=== PATIENT | female | born 1990 | race Caucasian/White ===

== ENCOUNTER → 2017-01-21 | Outpatient (CLI) | payer BC ==
[~2017-01-21] MED LIST: BCPILLS PO; DULO60CA44 PO; TIZA2CAP PO; TOPI1CAP3 PO
== END | disposition home or self-care (01) ==
LOC: C.PAPS 08:38
PROVIDERS: ATTEND Obstetrics & Gynecology
DX: Z01.411 Encounter for gynecological examination (general) (routine) with abnormal findings (principal); R87.616 Satisfactory cervical smear but lacking transformation zone; Z87.42 Personal history of other diseases of the female genital tract

== ENCOUNTER → 2017-02-07 | Outpatient (CLI) | payer BC ==
[~2017-02-07] MED LIST changes: +GADAVIST IV PRN
--- NOTE | 2017-02-07 13:35 | DIAGNOSTIC IMAGING REPORT ---
MRI OF THE BRAIN WITHOUT AND WITH IV CONTRAST CLINICAL HISTORY: Headache. Chiari malformation. LEFT-SIDED NUMBNESS COMPARISON STUDY: No previous studies for comparison. TECHNIQUE: MRI of the brain was performed from the vertex to the skull base utilizing various T1 and T2 weighted sequences. Following the IV administration of 8.7 mL of Gadavist contrast, additional enhanced images were obtained. FINDINGS: Sagittal T1, axial diffusion, proton density and T2 weighted axial, coronal FLAIR, and pre and post axial T1-weighted images were acquired. These were supplemented with post gadolinium coronal T1 weighted images. The patient is status post a suboccipital craniotomy. No intra or extra-axial mass lesions are visualized. Axial diffusion-weighted images reveal no evidence of acute or subacute infarction. There is no evidence of ventricular dilatation. Proton density T2-weighted and FLAIR images reveal linear foci of increased T2 signal within the right frontal lobe extending from the cortex to the right lateral ventricle. This may represent a prior shunt catheter tract There are no abnormal flow voids. There is no evidence of pathologic enhancement. IMPRESSION: 1. Postsurgical changes of a suboccipital craniotomy 2. Linear signal abnormalities within the right frontal lobe, possibly related to a prior shunt catheter tract 3. No acute intracranial findings. No evidence of intracranial mass. No evidence of acute or subacute infarction. No evidence of hydrocephalus. Electronically signed by: Isaac Blake M.D. 02/07/2017 1:34 PM Dictated Date/Time: 02/07/2017 1:31 PM
--- NOTE | 2017-02-07 13:54 | DIAGNOSTIC IMAGING REPORT ---
MRI CERVICAL SPINE COMBO CLINICAL HISTORY: CHIARI MALFORMATION HEADACHE TECHNIQUE: Sagittal and axial T1, T2 and STIR images were obtained. Imaging was performed before and after administration of 8.7 cc of intravenous Gadavist. COMPARISON STUDY: No previous studies for comparison. There are no suspicious areas of marrow replacement. There is minimal dilatation of the central canal as visualized in the sagittal images extending from the mid C4 level to the inferior T4 level. C2-3: There is no evidence of disc bulge or focal herniation. There is no spinal or foraminal stenosis. C3-4: There is no evidence of disc bulge or focal herniation. There is no spinal or foraminal stenosis. C4-5: There are no disc bulges or focal herniations. There is no spinal or foraminal stenosis. C5-6 :There is a mild circumferential disc bulge. There is no significant spinal or foraminal stenosis. C6-7: There is no evidence of disc bulge or focal herniation. There is no evidence of spinal or foraminal stenosis. C7-T1: There is no evidence of disc bulge or focal herniation. There is no evidence of spinal or foraminal stenosis. The examination is mildly compromised due to machine related artifact. Postcontrast images reveal no pathologic enhancement IMPRESSION: 1. Mild circumferential disc bulge the C5-6 level 2. No significant spinal or foraminal stenosis 3. Postsurgical changes of a suboccipital craniotomy 4. 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 Electronically signed by: Isaac Blake M.D. 02/07/2017 1:53 PM Dictated Date/Time: 02/07/2017 1:46 PM
== END | disposition home or self-care (01) ==
LOC: C.MRIBC 11:40
PROVIDERS: ATTEND Psychiatry & Neurology Neurology
DX: R51 Headache (principal); G95.0 Syringomyelia and syringobulbia; M54.2 Cervicalgia

== ENCOUNTER → 2017-06-03 | Outpatient (CLI) | payer BC ==
[~2017-06-03] MED LIST changes: -GADAVIST IV PRN
--- NOTE | 2017-06-03 09:19 | DIAGNOSTIC IMAGING REPORT ---
LUMBAR SPINE MRI HISTORY: NUMBNESS OF FOOT; INCONTINENCE OF BOWEL TECHNIQUE: Multiplanar multisequence MRI of the lumbar spine was performed without the use of contrast. COMPARISON: None. FINDINGS: For the purpose of the report the L5-S1 disc space will be located on axial image 27 of 30. Alignment is intact. No fractures within the lumbar spine. The conus terminus at the L1-L2 disc space level. Paraspinal soft tissues are unremarkable. Mild disc desiccation at L4-L5. Mild disc space narrowing at L5-S1. L1-L2: No significant central canal or neural foraminal narrowing. L2-L3: No significant central canal or neural foraminal narrowing. L3-L4: No significant central canal or neural foraminal narrowing. L4-L5: Small broad-based posterior disc protrusion without significant central canal or neural foraminal narrowing. L5-S1: Small broad-based posterior disc bulge with a focal central annular tear. No significant central canal or neural foraminal narrowing. IMPRESSION: Mild degenerative changes within the lower lumbar spine as described above. No significant central canal or neural foraminal narrowing. Electronically signed by: Ish Berman M.D. 06/03/2017 9:18 AM Dictated Date/Time: 06/03/2017 8:55 AM
== END | disposition home or self-care (01) ==
LOC: C.MRI 08:07
PROVIDERS: ATTEND Psychiatry & Neurology Neurology
DX: R15.9 Full incontinence of feces (principal); R20.0 Anesthesia of skin

== ENCOUNTER → 2017-06-06 | Outpatient (CLI) | payer BC ==
[~2017-06-06] MED LIST changes: +GADAVIST IV PRN
--- NOTE | 2017-06-07 10:20 | DIAGNOSTIC IMAGING REPORT ---
MRI OF THE THORACIC SPINE WITH AND WITHOUT CONTRAST CLINICAL HISTORY: Left leg weakness, left lower extremity numbness and tingling. Bowel incontinence. Hydromyelia. COMPARISON STUDY: No previous studies for comparison. TECHNIQUE: Utilizing a 1.5 Safia magnet and dedicated coil, multiplanar, multi echo imaging of the thoracic spine was performed pre and postcontrast administration. Injection of 8.5 cc of Gadavist IV was uneventful. FINDINGS: Alignment of the thoracic spine is anatomic. Vertebral body heights are maintained. There is no marrow edema or marrow replacement. No intracanalicular mass or fluid collection is present. There is no abnormal enhancement within the thoracic canal. Paravertebral soft tissues are unremarkable. Sagittal T2-weighted images demonstrate apparent prominence of the central canal of the lower cervical and upper thoracic cord. This could reflect hydromyelia although is difficult to confirm on the axial images. The appearance is similar to MRI of February 07, 2017. No additional sites of thoracic cord signal abnormality are present. The patient is status post suboccipital craniectomy which is demonstrated on the unit supervisor images. Central canal and neural foramen are patent. IMPRESSION: 1. Patent central canal and neural foramen within the thoracic spine. No thoracic disc herniation. 2. Apparent prominence of the central canal of the lower cervical cord and upper thoracic cord which may reflect hydromyelia which is similar to MRI of February 07, 2017. This is difficult to confirm on the axial images but mild dilatation of the central canal of the cord is suspected. Electronically signed by: Rui Silveira M.D. 06/07/2017 10:18 AM Dictated Date/Time: 06/06/2017 11:24 PM
== END | disposition home or self-care (01) ==
LOC: C.MRI 19:53
PROVIDERS: ATTEND Psychiatry & Neurology Neurology
DX: Q06.4 Hydromyelia (principal); R15.9 Full incontinence of feces; R20.0 Anesthesia of skin

== ENCOUNTER 2017-06-07 17:40 | Emergency (ER) | payer BC ==
[~2017-06-07] VITALS: Ht 162.6 cm; Wt 89.5 kg
[2017-06-07 17:51] VITALS: TEMP 36.8; Ht 162.6 cm; Wt 89.5 kg
[2017-06-07] MEDS ORDERED: TOPI1CAP3 PO (19:06)
[2017-06-07] MEDS ORDERED: BCPILLS PO (19:06)
[2017-06-07] MEDS ORDERED: DULO60CA44 PO (19:06)
[2017-06-07] MEDS ORDERED: TIZA2CAP PO (19:09)
[2017-06-07] MEDS ORDERED: SODIUM CHLORIDE 0.9% 1000ML 1,000 ML IV STA (19:25)
[2017-06-07] MEDS ORDERED: SODIUM CHLORIDE 0.9% 1000ML 250 ML IV STA (19:25)
[2017-06-07 19:53] LABS: BASO % 0.3 %; BASO ABS # 0.02 K/uL (0-0.2); COMPLETE YES; EOS % 2.9 %; HEMATOCRIT 42.6 % (37-47); IG% 0.3 %; LYMPH % 30.9 %; LYMPH ABS # 2.22 K/uL (1.2-3.4); MEAN CELL VOLUME 89.1 fL (80-100); MEAN CORPUSCULAR HEMOGLOBIN 31.6 pg (25-34); MEAN CORPUSCULAR HGB CONC 35.4 g/dl (32-36); MEAN PLATELET VOLUME 10.8 fL (7.4-10.4); MONO % 7.1 %; NEUT % 58.5 %; PLATELET COUNT 202 K/uL (130-400); RED BLOOD COUNT 4.78 M/uL (4.2-5.4); WHITE BLOOD COUNT 7.18 K/uL (4.8-10.8)
[2017-06-07 20:03] LABS: ALT/SGPT 23 U/L (12-78); AST/SGOT 14 U/L (15-37); BLOOD UREA NITROGEN 12 mg/dl (7-18); CALCIUM 9.1 mg/dl (8.5-10.1); CARBON DIOXIDE 24 mmol/L (21-32); CHLORIDE 107 mmol/L (98-107); CREATININE 0.78 mg/dl (0.60-1.20); GLUCOSE 99 mg/dl (70-99); SODIUM 138 mmol/L (136-145)
[2017-06-07 20:14] LABS: ALKALINE PHOSPHATASE 49 U/L (45-117)
[2017-06-07 20:15] LABS: PREG INTERNAL NEGATIVE QC NEG CLEAR BACKGROUND; PREG INTERNAL POSITIVE QC POS CONTROL LINE
[2017-06-07] MEDS ORDERED: GADAVIST IV PRN (21:45)
--- NOTE | 2017-06-07 21:47 | DIAGNOSTIC IMAGING REPORT ---
MRI OF THE BRAIN WITHOUT AND WITH IV CONTRAST CLINICAL HISTORY: Left-sided numbness and weakness. Bowel incontinence. COMPARISON STUDY: 02/07/2017 TECHNIQUE: MRI of the brain was performed from the vertex to the skull base utilizing various T1 and T2 weighted sequences. Following the IV administration of 9 mL of Gadavist contrast, additional enhanced images were obtained. FINDINGS: Sagittal T1, axial diffusion, proton density and T2 weighted axial, coronal FLAIR, and pre and post axial T1-weighted images were acquired. These were supplemented with post gadolinium coronal T1 weighted images. No intra or extra-axial mass lesions are visualized. Axial diffusion-weighted images reveal no evidence of acute or subacute infarction. There is no evidence of ventricular dilatation. Proton density T2-weighted and FLAIR images reveal linear focus of increased T2 signal within the right frontal lobe extending from the cortex to the right lateral ventricle. This potentially is secondary to a prior shunt catheter. There are no abnormal flow voids. There is no evidence of pathologic enhancement. There are postsurgical changes of a suboccipital craniotomy. IMPRESSION: 1. No significant change from the prior February 07, 2017 study 2. Postsurgical changes of a suboccipital craniotomy 3. Linear signal abnormalities in the right frontal lobe, possibly related to a prior shunt catheter tract 4. No evidence of intracranial mass. No evidence of acute or subacute infarction. No evidence of hydrocephalus. Electronically signed by: Isaac Blake M.D. 06/07/2017 9:46 PM Dictated Date/Time: 06/07/2017 9:43 PM
--- NOTE | 2017-06-07 21:52 | DIAGNOSTIC IMAGING REPORT ---
MRI CERVICAL SPINE COMBO CLINICAL HISTORY: Left-sided numbness and tingling. History of Chiari malformation. TECHNIQUE: Sagittal and axial T1, T2 and STIR images were obtained. Imaging was performed before and after the administration of 9 cc of intravenous Gadavist. COMPARISON STUDY: 02/07/2017 There are no suspicious areas of marrow replacement. C2-3: There is no evidence of disc bulge or focal herniation. There is no spinal or foraminal stenosis. C3-4: There is no evidence of disc bulge or focal herniation. There is no spinal or foraminal stenosis. C4-5: There are no disc bulges or focal herniations. There is no spinal or foraminal stenosis. C5-6 :There is a mild circumferential disc bulge. There is no significant spinal stenosis. There is no significant foraminal narrowing C6-7: There is no evidence of disc bulge or focal herniation. There is no evidence of spinal or foraminal stenosis. C7-T1: There is no evidence of disc bulge or focal herniation. There is no evidence of spinal or foraminal stenosis. There is no evidence of pathologic enhancement. There is minimal dilatation of the central canal from the upper cervical level to the T4 level. This remains unchanged the prior study IMPRESSION: 1. No significant change from the prior study 2. Mild circumferential disc bulge at the C5-6 level 3. Postsurgical changes of a occipital craniotomy 4. Minimal hydromyelia, extending from the upper cervical level to the T4 level. Electronically signed by: Isaac Blake M.D. 06/07/2017 9:51 PM Dictated Date/Time: 06/07/2017 9:47 PM
[2017-06-08 00:18] VITALS: BP 118/83; PULSE 80; O2SAT 97
--- NOTE | 2017-06-08 01:21 | EMERGENCY ROOM VISIT NOTE ---
History Report prepared by Tonya: Marii Ballard Under the Supervision of: Dr. Vic Garcia M.D. First contact with patient: 19:07 Chief Complaint: BACK PAIN Stated Complaint: LOSS OF MUSCLE STRENGTH, TINGLING, BACK PAIN, NUMB History of Present Illness The patient is a 26 year old female who presents to the Emergency Room with complaints of worsening tingling starting a week ago. The patient states that in [id number] she had a decompression surgery for Chiari Disease and Syringomyelia. She states that after the surgery she has permeant tingling from the middle of left arm down to her hand and difficulty controlling her bowels. She states that if she felt the need for a bowel movement, she had 5 minutes to get to the bathroom. She states that she has had some close calls. The patient reports that a week ago she had an accident and could not make it to the restroom. She reports that she noticed that since then her left leg has gone numb, weak, and tingling. She states that she also has had intermittent tingling in her right leg. The patient notes that she now also has tingling and weakness in her face, neck, shoulders, and her left side. She reports that she has back pain when lifting her arms. She states the tingling in her neck is the most intense. The patient complains of a headache, neck pain, and hot flashes. She notes that she gets chronic migraines and that she does normally have neck pain, but that this is higher. She reports that she came to the ED today because when she called her nurse, they told her if she wants answers to come in. She notes that right before these symptoms she was put on Clindamycin for an ear infection. She states that there was a 3 day overlap with her symptoms and antibiotics. The patient denies visual problems, chest pain, shortness of breath, diarrhea, melena, trauma, rash, tick bites, trouble speaking, difficulty swallowing, and fever. Source of History: patient, spouse/significant other Onset: a week ago Position: other (global) Quality: tingling, numbness, other (weakness) Timing: worsening Modifying Factors (Worsening): movement (lifting) Associated Symptoms: + headache, + neck pain, + weakness, + numbness, No fevers, No chest pain, No SOB, No melena, No diarrhea, No rash Note: The patient complains of bowel incontinence and hot flashes.The patient denies visual problems, trauma, tick bites, trouble speaking, and difficulty swallowing. Review of Systems See HPI for pertinent positives & negatives. A total of 10 systems reviewed and were otherwise negative. Past Medical & Surgical Medical Problems: (1) Chiari syndrome (2) Syringomyelia Old medical records were reviewed. Nurse's notes were reviewed and I agree with. Family History No significant family history Social History Smoking Status: Never Smoker Marital Status: Housing Status: lives with significant other Occupation Status: employed Current/Historical Medications Scheduled Control Pills ( Control Pills), 1 TAB PO DAILY Duloxetine Hcl (Cymbalta), 60 MG PO QPM Topiramate (Trokendi Xr), 100 MG PO QPM Scheduled PRN Tizanidine (Zanaflex), 2 MG PO BID PRN for Muscle Spasms Allergies Coded Allergies: Amoxicillin (Unverified Allergy, Unknown, HIVES, 06/07/17) Cephalosporins (Unverified Allergy, Unknown, HIVES, 06/07/17) Clarithromycin (Unverified Allergy, Unknown, HIVES/RASH, 06/07/17) Doxycycline (Unverified Allergy, Unknown, HIVES, 06/07/17) Physical Exam Vital Signs Date Time Temp Pulse Resp B/P (MAP) Pulse Ox O2 Delivery O2 Flow Rate FiO2 06/08/17 00:18 80 22 118/83 97 06/07/17 17:51 36.8 85 16 147/102 100 Room Air Physical Exam General: Well developed well nourished in no acute distress, breathing comfortably on room air. Normal speech. Non-ill appearing young female. GCS 15. HEENT: Normal cephalic atraumatic. Pupils are equal round and reactive to light. Sclerae are anicteric. Extraocular movements are intact. Oropharynx is pink with moist mucous membranes. No swelling of the mouth lips or tongue. Neck: Supple with a midline trachea. No meningeal signs or stiffness, no JVD or bruits. No Stridor. Chest: Clear to auscultation bilaterally. No wheezes or rhonchi. No increased work of breathing. Heart: regular rate and rhythm. Abdomen: Soft nontender, nondistended without rebound guarding or rigidity. Extremities: No cyanosis clubbing or edema. No calf tenderness or assymetry Spine/Back. Non tender to palpation. No CVA tenderness Skin: Good turgor without rashes. Neurologic exam: Cranial nerves two through 12 are intact. Motor is intact with the exception of some possible mild weakness in the left leg. Subjective decreased sensation in left face. Normal cranial nerves. Subjective decrease in left arm and leg. No tremor. Medical Decision & Procedures ER Provider Diagnostic Interpretation: Radiology results as stated below per my review and radiologist interpretation: MRI CERVICAL SPINE COMBO CLINICAL HISTORY: Left-sided numbness and tingling. History of Chiari malformation. TECHNIQUE: Sagittal and axial T1, T2 and STIR images were obtained. Imaging was performed before and after the administration of 9 cc of intravenous Gadavist. COMPARISON STUDY: 02/07/2017 There are no suspicious areas of marrow replacement. C2-3: There is no evidence of disc bulge or focal herniation. There is no spinal or foraminal stenosis. C3-4: There is no evidence of disc bulge or focal herniation. There is no spinal or foraminal stenosis. C4-5: There are no disc bulges or focal herniations. There is no spinal or foraminal stenosis. C5-6 :There is a mild circumferential disc bulge. There is no significant spinal stenosis. There is no significant foraminal narrowing C6-7: There is no evidence of disc bulge or focal herniation. There is no evidence of spinal or foraminal stenosis. C7-T1: There is no evidence of disc bulge or focal herniation. There is no evidence of spinal or foraminal stenosis. There is no evidence of pathologic enhancement. There is minimal dilatation of the central canal from the upper cervical level to the T4 level. This remains unchanged the prior study IMPRESSION: 1. No significant change from the prior study 2. Mild circumferential disc bulge at the C5-6 level 3. Postsurgical changes of a occipital craniotomy 4. Minimal hydromyelia, extending from the upper cervical level to the T4 level. Electronically signed by: Isaac Blake M.D. 06/07/2017 9:51 PM Dictated Date/Time: 06/07/2017 9:47 PM MRI OF THE BRAIN WITHOUT AND WITH IV CONTRAST CLINICAL HISTORY: Left-sided numbness and weakness. Bowel incontinence. COMPARISON STUDY: 02/07/2017 TECHNIQUE: MRI of the brain was performed from the vertex to the skull base utilizing various T1 and T2 weighted sequences. Following the IV administration of 9 mL of Gadavist contrast, additional enhanced images were obtained. FINDINGS: Sagittal T1, axial diffusion, proton density and T2 weighted axial, coronal FLAIR, and pre and post axial T1-weighted images were acquired. These were supplemented with post gadolinium coronal T1 weighted images. No intra or extra-axial mass lesions are visualized. Axial diffusion-weighted images reveal no evidence of acute or subacute infarction. There is no evidence of ventricular dilatation. Proton density T2-weighted and FLAIR images reveal linear focus of increased T2 signal within the right frontal lobe extending from the cortex to the right lateral ventricle. This potentially is secondary to a prior shunt catheter. There are no abnormal flow voids. There is no evidence of pathologic enhancement. There are postsurgical changes of a suboccipital craniotomy. IMPRESSION: 1. No significant change from the prior February 07, 2017 study 2. Postsurgical changes of a suboccipital craniotomy 3. Linear signal abnormalities in the right frontal lobe, possibly related to a prior shunt catheter tract 4. No evidence of intracranial mass. No evidence of acute or subacute infarction. No evidence of hydrocephalus. Electronically signed by: Isaac Blake M.D. 06/07/2017 9:46 PM Dictated Date/Time: 06/07/2017 9:43 PM Laboratory Results 06/07/17 19:00 Red Blood Count 4.78, Mean Corpuscular Volume 89.1, Mean Corpuscular Hemoglobin 31.6, Mean Corpuscular Hemoglobin Concent 35.4, Mean Platelet Volume 10.8, Neutrophils (%) (Auto) 58.5, Lymphocytes (%) (Auto) 30.9, Monocytes (%) (Auto) 7.1, Eosinophils (%) (Auto) 2.9, Basophils (%) (Auto) 0.3, Neutrophils # (Auto) 4.20, Lymphocytes # (Auto) 2.22, Monocytes # (Auto) 0.51, Eosinophils # (Auto) 0.21, Basophils # (Auto) 0.02 06/07/17 19:00 Test 06/07/17 19:00 White Blood Count 7.18 K/uL (4.8-10.8) Red Blood Count 4.78 M/uL (4.2-5.4) Hemoglobin 15.1 g/dL (12.0-16.0) Hematocrit 42.6 % (37-47) Mean Corpuscular Volume 89.1 fL (80-100) Mean Corpuscular Hemoglobin 31.6 pg (25-34) Mean Corpuscular Hemoglobin Concent 35.4 g/dl (32-36) Platelet Count 202 K/uL (130-400) Mean Platelet Volume 10.8 fL (7.4-10.4) Neutrophils (%) (Auto) 58.5 % Lymphocytes (%) (Auto) 30.9 % Monocytes (%) (Auto) 7.1 % Eosinophils (%) (Auto) 2.9 % Basophils (%) (Auto) 0.3 % Neutrophils # (Auto) 4.20 K/uL (1.4-6.5) Lymphocytes # (Auto) 2.22 K/uL (1.2-3.4) Monocytes # (Auto) 0.51 K/uL (0.11-0.59) Eosinophils # (Auto) 0.21 K/uL (0-0.5) Basophils # (Auto) 0.02 K/uL (0-0.2) RDW Standard Deviation 41.7 fL (36.4-46.3) RDW Coefficient of Variation 12.7 % (11.5-14.5) Immature Granulocyte % (Auto) 0.3 % Immature Granulocyte # (Auto) 0.02 K/uL (0.00-0.02) Anion Gap 7.0 mmol/L (3-11) Est Creatinine Clear Calc Drug Dose 117.4 ml/min Estimated GFR () 120.8 Estimated GFR (Non- 104.2 BUN/Creatinine Ratio 16.0 (10-20) Calcium Level 9.1 mg/dl (8.5-10.1) Total Bilirubin 0.5 mg/dl (0.2-1) Direct Bilirubin < 0.1 mg/dl (0-0.2) Aspartate Amino Transf (AST/SGOT) 14 U/L (15-37) Alanine Aminotransferase (ALT/SGPT) 23 U/L (12-78) Alkaline Phosphatase 49 U/L (45-117) Total Protein 8.1 gm/dl (6.4-8.2) Albumin 4.0 gm/dl (3.4-5.0) Lipase 254 U/L (73-393) Thyroid Stimulating Hormone (TSH) 3.620 uIu/ml (0.300-4.500) Human Chorionic Gonadotropin, Qual NEG (NEG) Laboratory studies as stated above per my review. Medications Administered Medications (Trade) Dose Ordered Sig/Tevin Route Start Time Stop Time Status Last Admin Dose Admin Sodium Chloride 250 ml @ 999 mls/hr Q16M STAT IV 06/07/17 19:25 06/07/17 19:40 DC 06/07/17 19:49 999 MLS/HR ECG Indication: weakness Rate (beats per minute): 80 Rhythm: normal sinus Findings: no acute ischemic change, other (sinus arrhythmia) Comparison ECG Date: no prior available ED Course 1910: Past medical records reviewed. The patient was evaluated in room C5, and a complete history and physical examination were performed. 1924: Ordered NSS 1000 ml @ 100 mls/hr IV, NSS 250 ml @ 999 mls/hr IV. 0: I made the patient's aware of the delay in the MRI because they have to wait 24 hours after one and they had one yesterday. She will go around 2100. 2139: I reevaluated the patient and she is not back from MRI. 2305: I reevaluated the patient and she appears comfortable. 2329: I discussed the patient's case with Dr. Rust and agreed that we ruled out acute diagnoses. The patient can follow up with Dr. Crowder. 2342: Upon reevaluation, the patient is resting comfortably. I discussed the results and treatment plan with her. She verbalized agreement of the treatment plan. The patient was discharged home. Medical Decision Differential diagnoses include CVA, intracranial process, spinal cord process, infection, syringomyelia, hydromyelia, electrolyte abnormality, metabolic abnormality. This patient comes in as described above. She was placed in room C5. she's been having some tingling and possible small weakness in her left side for about a week . she has chronic tingling and left arm .it's worse in the face and leg she had MRI of her thoracic and lumbar spine yesterday which do not show any definite pathology to explain her symptoms. IV access established and blood work was obtained. she's had no white count or fever to suggest infection. she's had no trauma. She's no acute electrolyte or metabolic abnormality. She's nothing to suggest liver, gallbladder, pancreas disease. I did MRI of her head and neck and there is no acute findings. She does have a mild chronic syringomyelia however is unchanged from previous MRI. She has intact reflexes. She's had nothing to suggest acute stroke or MS. I did discuss the case with the on-call neurologist who agrees with the workup. The patient is to follow up with her neurologist tomorrow. She was given copies of her MRIs and should return if: worsening of symptoms, increasing numbness or weakness, fever chills, any new problems or concerns.. Head Trauma GCS Score: 15 Consults Time Called: 2325 Consulting Physician: Dr. Rust Returned Call: [phone] I discussed the patient's case with Dr. Rust and agreed that we ruled out acute diagnoses. The patient can follow up with Dr. Crowder. Impression Primary Impression: Left sided numbness Scribe Attestation The scribe's documentation has been prepared under my direction and personally reviewed by me in its entirety. I confirm that the note above accurately reflects all work, treatment, procedures, and medical decision making performed by me. Departure Information Dispostion Home / Self-Care Referrals Joelle Thomas M.D. (PCP) Forms HOME CARE DOCUMENTATION FORM, IMPORTANT VISIT INFORMATION Patient Instructions [facility] Additional Instructions Rest. Drink plenty of fluids. Return if: Increasing pain, worsening symptoms, shortness of breath, any new problems or concerns Follow-up with Dr. Crowder tomorrow
== END 2017-06-08 00:19 | disposition home or self-care (01) ==
LOC: C.EDB 17:42 → C.EDC 06-08 00:19
DX: R20.0 Anesthesia of skin (principal); G93.5 Compression of brain; G95.0 Syringomyelia and syringobulbia; Z79.3 Long term (current) use of hormonal contraceptives; Z79.899 Other long term (current) drug therapy